=== PATIENT | male | born 1990 | race Caucasian/White ===

== ENCOUNTER 2020-03-13 08:44 | Emergency (ER) | payer SELFPAY ==
[2020-03-13 09:03] VITALS: BP 117/81; PULSE 67; RESP 16; TEMP 36.4; O2SAT 98; BMI 25.1
[2020-03-13 09:12] VITALS: RESP 12
--- NOTE | 2020-03-13 09:35 | W.ED.SKABFB ---
HPI - Skin/Abscess/Foreign Bdy General: Chief complaint: Skin/Abscess/Foreign Body Stated complaint: rash Time Seen by Provider: 03/13/20 08:46 History of Present Illness: HPI narrative: Patient has a rash on the buttocks been there approximately a month and has been putting triple antibiotic and triple H cream on there has not improved. Patient does have a history of psoriasis and eczema. Patient said this rash is been on his butt before. Complains about itching denies any fever chills are any contact with anything that possibly could have caused this MD complaint: rash Onset (ago): week(s) Tetanus up to date: unsure Location: buttocks Severity: mild Quality: pruritic Associated symptoms: Reports itching; Deny chills, fever(s), nausea or vomiting Treatments prior to arrival: OTC topical medication Review of Systems Const: Denies: fever(s), chills or body aches Eyes: Denies: change in vision or blurry vision ENMT: Denies: throat pain or nasal congestion Card: Denies: chest pain or dyspnea on exertion Resp: Denies: dyspnea, productive cough or non-productive cough GI: Denies: abdominal pain, nausea or vomiting : Denies: difficulty urinating Musc: Denies: extremity pain Skin/Breast: Reports: rash (On the buttocks) and pruritus Neuro: Denies: headache(s) Psych: Denies: anxiety or depression Gui/Lymph: Denies: easy bruising PFSH ED PFSH: Social History Smoking and tobacco status: current every day smoker Physical Exam Const: COMMON NORMALS: no acute distress, average body habitus and patient oriented x3 HENMT: COMMON NORMALS: normocephalic HEAD & SCALP: normal to inspection and normocephalic FACE & SINUS: normal facial exam Eye: COMMON NORMALS: conjunctivae normal GENERAL EYE: appearance normal, both eyes and all related structures CONJUNCTIVA: Yes conjunctivae normal Neck/C-Spine: COMMON NORMALS: no JVD Chest: COMMONS NORMALS: normal inspection of the chest Resp: COMMON NORMALS: normal respiratory effort and clear to auscultation bilaterally AUSCULTATION: clear to auscultation bilaterally Cardio: COMMON NORMALS: no JVD, regular rate and regular rhythm RATE: regular rate RHYTHM: regular rhythm GI: COMMON NORMALS: Normal to inspection, nondistended, normoactive bowel sounds present Extremity: COMMON NORMALS: normal to inspection and full ROM Neuro: COMMON NORMALS: patient oriented x3 Skin: OTHER: Maculopapular rash right and left buttocks up to the beach other worse on the right than the left though approximately 3 to 4 inches in length inch in breath maculopapular Course Vital Signs: Vital signs: Vital Signs Temperature 97.5 F L 03/13/20 09:03 Pulse Rate 67 03/13/20 09:03 Respiratory Rate 12 03/13/20 09:12 Blood Pressure 117/81 03/13/20 09:03 Pulse Oximetry 98 03/13/20 09:03 Coding Level of Care Code ED Auto Damage Trainee for Janice Maravilla
== END 2020-03-13 09:48 | disposition home or self-care (01) ==
PROVIDERS: Emergency Provider Nurse Practitioner Family; Family Provider Nurse Practitioner Family; PCP Nurse Practitioner Family
DX: R21 Rash and other nonspecific skin eruption (principal); F17.210 Nicotine dependence, cigarettes, uncomplicated
CPT/HCPCS: 12345; 99281; 99282

== ENCOUNTER 2020-04-18 16:46 | Emergency (ER) | payer SELFPAY ==
[2020-04-18 17:07] VITALS: BP 123/75; PULSE 90; RESP 18; TEMP 36.5; O2SAT 95; BMI 29.5
--- NOTE | 2020-04-18 17:57 | ED_ITS ---
HPI - Skin/Abscess/Foreign Bdy General: Chief complaint: Skin/Abscess/Foreign Body Stated complaint: rash Time Seen by Provider: 04/18/20 17:55 Source: patient Mode of arrival: ambulatory Limitations: no limitations History of Present Illness: HPI narrative: Patient is a 30-year-old male who presents to ED today with complaints of a rash. Patient tells me over the past few days he has noticed very small papules pop up on his hands. He states he will pick at the lesions and eventually they will dry/crust up. He has noticed lesions to his bilateral forearms as well. He is now noticing lesions to the left side of his neck. He describes the rash is extremely pruritic worse at night and worse with hot showers. He has not had any known chemical, household exposures. He does report sitting in a hotel room a few weeks ago. Patient was seen here at our facility recently for a rash to his buttocks. He was diagnosed with eczema. Patient has no systemic complaints. MD complaint: rash Onset (ago): day(s) Tetanus up to date: yes Location: generalized Quality: pruritic Relieving factors: none Exacerbating factors: other (worse at night, worse with warm showers) Context: none Associated symptoms: Reports no associated symptoms; Deny chills, fever(s), nausea or vomiting Treatments prior to arrival: none Review of Systems Const: Denies: fever(s), chills or body aches Eyes: Denies: change in vision ENMT: Denies: throat pain or odynophagia Card: Denies: chest pain Resp: Denies: dyspnea GI: Denies: abdominal pain, nausea or vomiting Musc: Denies: neck pain, back pain, extremity pain or joint pain Skin/Breast: Reports: rash Neuro: Denies: headache(s), numbness in extremities, weakness in extremities or sensory changes PFSH ED PFSH: Social History Smoking and tobacco status: current every day smoker Physical Exam Const: COMMON NORMALS: no acute distress, average body habitus, patient oriented x3, no limitations, healthy appearing, alert and well nourished Lymph: LYMPHATIC: no lymphadenopathy noted Resp: COMMON NORMALS: normal respiratory effort Extremity: GENERAL: Yes normal exam except as noted Neuro: COMMON NORMALS: patient oriented x3 SENSORIUM/ORIENTATION: Yes alert Skin: OTHER: Patient has excoriated papules to bilateral dorsal forearms. He has several folliculitis lesions throughout chest/back that he states are normal. He has a trailing area of erythematous bite like lesions to L side of his neck; he has a plaque like lesion to gluteal cleft (states this is the rash he was seen for last visit) Course Vital Signs: Vital signs: Vital Signs Temperature 98.3 F 04/18/20 18:16 Pulse Rate 88 04/18/20 18:16 Respiratory Rate 20 H 04/18/20 18:16 Blood Pressure 138/66 04/18/20 18:16 Pulse Oximetry 95 04/18/20 17:07 MDM - Skin/Abscess/Foreign Bdy MDM Narrative: Medical decision making narrative: Patient's history is extremely suspicious for scabies. Rash/lesions are excoriated and picked at so hard to fully evaluate. He does complain of papules to his hands and fingers although I did not visualize any interdigital lesions today. Rash does not follow classic scabies distribution however based on history we will go ahead and try treatment with permethrin. Recommend he follow-up with PCP in 2 weeks if rash persists. Discharge Plan Discharge Patient Disposition: Home, Self-Care Clinical Impression: Scabies Condition: Stable Prescriptions: New permethrin 5 % cream 1 applic TOPICAL Q14D Qty: 60 RF: 0 No Action triamcinolone acetonide 0.1 % ointment 1 applic TOPICAL BID PRN (Reason: rash) Qty: 80 RF: 0 Discharge Orders: Discharge Order (Routine); Ordered 04/18/20 Ordered By: Anna Marie Perez Referrals: Ana Luisa Ngo FNP-C [Primary Care Provider] - Patient Instructions: Scabies (ED), Scabies - Adult Activity Restrictions/Additional Instructions: Please follow up with primary care in 2 weeks if rash persists. Discharge Date/Time: 04/18/20 18:32 Coding Level of Care Code ED Roll Over Loader for Janice Fwd Exam Expanded Problem Focused
[2020-04-18 18:16] VITALS: BP 138/66; PULSE 88; RESP 20; TEMP 36.8
== END 2020-04-18 18:32 | disposition home or self-care (01) ==
PROVIDERS: Emergency Provider Physician Assistant; PCP Nurse Practitioner Family
DX: B86 Scabies (principal); F17.210 Nicotine dependence, cigarettes, uncomplicated
CPT/HCPCS: 12345; 99281; 99282

== ENCOUNTER 2020-05-12 08:50 | Emergency (ER) | payer SELFPAY ==
[2020-05-12 09:02] VITALS: BP 139/80; PULSE 87; RESP 16; TEMP 36.8; O2SAT 98; BMI 28.7
[2020-05-12 09:08] VITALS: BP 139/80; PULSE 72; RESP 18; TEMP 36.8; O2SAT 98
--- NOTE | 2020-05-12 09:19 | W.ED.EXTPRO ---
HPI - Extremity Problem General: Chief complaint: Extremity Injury, Upper Stated complaint: R ELBOW INJURY Time Seen by Provider: 05/12/20 09:19 History of Present Illness: HPI Narrative: 30-year-old male presents to the emergency department with right elbow injury. He reports fell out of a window approximately 2 days ago, reports was Sunday, May 10, 2020. States he tripped over something causing him to fall out of the window, poor historian with detailed history. He denies neck pain, denies further injuries with exception of right elbow. Reports did not lose consciousness or hit his head. Reports taking Tylenol, [id number] for pain. Increased swelling and pain this AM. Denies previous right upper extremity trauma or injuries. MD Complaint: joint pain Onset (ago): day(s) (2) Pain Consistency: constant Location: right and elbow Severity scale (1-10): 5 Quality: aching Relieving factors: medication Associated symptoms: Reports no associated symptoms; Deny chest pain, fever(s) or rash Review of Systems General: Reports: 10 or more systems reviewed and unremarkable except in HPI and below Const: Denies: fever(s), chills or diaphoresis Eyes: Reports: blurry vision and eye redness ENMT: Denies: throat pain, dental pain or disequilibrium Card: Denies: chest pain, palpitations or irregular heart rhythm Resp: Denies: dyspnea, productive cough, non-productive cough or wheezing GI: Denies: abdominal pain, nausea or vomiting : Denies: dysuria Musc: Reports: joint pain (Right elbow, localized to the elbow.) and joint redness; Denies: neck pain or back pain Skin/Breast: Denies: rash or pruritus Neuro: Denies: headache(s), weakness in extremities or behavioral changes Gui/Lymph: Denies: easy bruising PFSH ED PFSH: Social History Smoking and tobacco status: current every day smoker Physical Exam Const: COMMON NORMALS: no acute distress, patient oriented x3, healthy appearing and alert GENERAL APPEARANCE: cooperative, comfortable and well hydrated Neck/C-Spine: COMMON NORMALS: full ROM and no lymphadenopathy GENERAL: Yes normal visual inspection and Yes trachea midline CERVICAL SPINE: Yes cervical ROM normal Chest: COMMONS NORMALS: normal inspection of the chest Resp: COMMON NORMALS: normal respiratory effort Cardio: COMMON NORMALS: regular rate, regular rhythm, S1 normal heart sound present, S2 normal heart sound present and Peripheral pulses 2+ throughout RATE: regular rate RHYTHM: regular rhythm HEART SOUNDS: S1 normal heart sound present and S2 normal heart sound present PERIPHERAL PULSES: Peripheral pulses 2+ throughout GI: COMMON NORMALS: non-tender INSPECTION: Yes normal to inspection Back/Pelvis: COMMON NORMALS: thoracic and lumbar spine normal to inspection Extremity: COMMON NORMALS: normal to inspection and capillary refill normal RIGHT UPPER EXTREMITY: Yes elbow joint (Right elbow with edema, slight erythema posterior, no open abrasions or lesions. Able to pronate supinate right upper extremity without radiation of pain to the right elbow, full range of motion to the right wrist right digits x5, right shoulder with full range of motion. Not able to reproduce pain to the right humerus or distal radius/ulna.) Right elbow: Yes neurovascular exam Neuro: COMMON NORMALS: patient oriented x3 and no focal motor deficits SENSORIUM/ORIENTATION: Yes alert Psych: COMMON NORMALS: mental status grossly normal, Normal thought process present and cooperative ACTIVITY/MOTOR BEHAVIOR: Yes appropriate eye contact THOUGHT PROCESS: Normal thought process present Skin: COMMON NORMALS: no rashes or lesions noted and turgor normal GENERAL SKIN EXAM: no rashes or lesions noted and turgor normal Course Vital Signs: Vital signs: Vital Signs Temperature 97.9 F 05/12/20 11:04 Pulse Rate 71 05/12/20 11:04 Respiratory Rate 16 05/12/20 11:04 Blood Pressure 127/73 05/12/20 11:04 Pulse Oximetry 99 05/12/20 11:04 Discharge Plan Discharge Patient Disposition: Home, Self-Care Clinical Impression: Contusion of elbow Qualifiers: Encounter type: initial encounter Laterality: right Qualified Code(s): S50.01XA - Contusion of right elbow, initial encounter Fall as cause of accidental injury at home as place of occurrence Qualifiers: Encounter type: initial encounter Qualified Code(s): W19.XXXA - Unspecified fall, initial encounter Condition: Stable Prescriptions: New ibuprofen 800 mg tablet 800 mg PO TID PRN (Reason: pain) Qty: 20 RF: 0 No Action triamcinolone acetonide 0.1 % ointment 1 applic TOPICAL BID PRN (Reason: rash) Qty: 80 RF: 0 permethrin 5 % cream 1 applic TOPICAL Q14D Qty: 60 RF: 0 Discharge Orders: Discharge Order (Routine); Ordered 05/12/20 Ordered By: Chelsey Hyatt Referrals: Ana Luisa Ngo FNP-C [Primary Care Provider] - Discharge Diet: As Directed Discharge Activity: Resume usual activity Patient Instructions: Contusion in Adults (ED), Fall Prevention (ED) Activity Restrictions/Additional Instructions: Apply cool compresses such as ice several times daily, never apply ice directly to the skin, apply cool compresses for approximately 20 minutes every 2-3 hours as needed for pain. Make sure to eat when taking ibuprofen. Return to the emergency department for worsening pain and swelling, inability to move your arm or if fever or chills developed with increased redness to the elbow. Discharge Date/Time: 05/12/20 11:07 Coding Level of Care Code ED Hand Sole Sewer for Janice Maravilla Exam Comprehensive
--- NOTE | 2020-05-12 09:31 | XR_ITS ---
WS: [id number] Right elbow, 3 views, 05/12/2020 Clinical Data: right elbow pain with swelling w/p fall 2 days ago Comparison: None. Findings: No fractures or dislocations are seen. The radial head is normal. There is soft tissue swelling over the olecranon.. XR/XR elbow RT min 3V* [id number] Impression: Negative right elbow.
[2020-05-12 11:04] VITALS: BP 127/73; PULSE 71; RESP 16; TEMP 36.6; O2SAT 99
== END 2020-05-12 11:07 | disposition home or self-care (01) ==
LOC: ER 10:31
PROVIDERS: Emergency Provider Nurse Practitioner Family; PCP Nurse Practitioner Family
DX: S50.01XA Contusion of right elbow, initial encounter (principal); W13.4XXA Fall from, out of or through window, initial encounter; F17.210 Nicotine dependence, cigarettes, uncomplicated
CPT/HCPCS: 12345; 73080; 99281; 99283

== ENCOUNTER 2020-05-20 22:37 | Emergency (ER) | payer SELFPAY ==
[2020-05-20 22:48] VITALS: BP 121/79; PULSE 80; RESP 18; TEMP 36.7; O2SAT 98; BMI 28.7
--- NOTE | 2020-05-20 22:54 | W.ED.EXTPRO ---
HPI - Extremity Problem General: Chief complaint: Extremity Problem,Nontraumatic Stated complaint: right elbow problems Time Seen by Provider: 05/20/20 22:54 Source: patient Mode of arrival: ambulatory Limitations: no limitations History of Present Illness: HPI Narrative: 30-year-old male comes in today with redness and drainage from his wound that occurred about 1 week ago. Patient had fallen through a window and abraded and contused his elbow. Over the last few days patient's had increasing redness and drainage from open wounds to the elbow. Patient does report picking and put prodding at the wounds. Patient appears well. Patient appears in mild to no pain. Review of Systems General: Reports: 10 or more systems reviewed and unremarkable except in HPI and below Skin/Breast: Reports: skin tenderness PFSH ED PFSH: Social History Smoking and tobacco status: current every day smoker Physical Exam Const: COMMON NORMALS: no acute distress and patient oriented x3 GENERAL APPEARANCE: cooperative HENMT: COMMON NORMALS: normocephalic and Normal external nose present HEAD & SCALP: normal to inspection and normocephalic NOSE: Normal external nose present Eye: GENERAL EYE: appearance normal, both eyes and all related structures Neck/C-Spine: COMMON NORMALS: full ROM Lymph: LYMPHATIC: no lymphadenopathy noted Chest: COMMONS NORMALS: normal inspection of the chest Resp: COMMON NORMALS: normal respiratory effort EFFORT & INSPECTION: Yes able to speak in complete sentences Cardio: COMMON NORMALS: regular rate and regular rhythm RATE: regular rate RHYTHM: regular rhythm GI: COMMON NORMALS: non-tender Back/Pelvis: COMMON NORMALS: thoracic and lumbar spine normal to inspection Extremity: COMMON NORMALS: normal to inspection Neuro: COMMON NORMALS: patient oriented x3 and moves all extremities Psych: COMMON NORMALS: mental status grossly normal and cooperative Skin: NARRATIVE SKIN EXAM: 4 cm area of redness to the right posterior elbow area with 3 open ulcerations draining serosanguineous fluid. Course Vital Signs: Vital signs: Vital Signs Temperature 98.0 F 05/20/20 22:48 Pulse Rate 80 05/20/20 22:48 Respiratory Rate 18 05/20/20 22:48 Blood Pressure 121/79 05/20/20 22:48 Pulse Oximetry 98 05/20/20 22:48 MDM - Extremity (Nontraumatic) MDM Narrative: Medical decision making narrative: Patient comes in today with complaints of redness and drainage from wounds to the right elbow. Exam notes some area of redness with some small draining lesions. Patient has normal range of motion of the elbow. No fevers noted. Differential diagnosis includes cellulitis, foreign body, abscess, bursitis. Note cellulitis to the elbow with wounds draining serous fluid. Suspect patient probably has a mild cellulitis, possible small foreign bodies are causing a foreign body effect. Recommend patient take Bactrim to cover for MRSA and some mupirocin ointment. Recommended patient avoid using neomycin and hydrogen peroxide to the area as it may be irritating the skin. Patient reports understanding of care plan and need for follow-up for worsening symptoms or new concerns. Discharge Plan Discharge Patient Disposition: Home Clinical Impression: Cellulitis Qualifiers: Site of cellulitis: extremity Site of cellulitis of extremity: upper extremity Laterality: right Qualified Code(s): L03.113 - Cellulitis of right upper limb Condition: Stable Prescriptions: New Bactrim DS 800-160 mg tablet 1 tab PO DAILY 10 Days Qty: 20 RF: 0 mupirocin 2 % ointment 1 applic TOPICAL BID Qty: 22 RF: 0 No Action triamcinolone acetonide 0.1 % ointment 1 applic TOPICAL BID PRN (Reason: rash) Qty: 80 RF: 0 ibuprofen 800 mg tablet 800 mg PO TID PRN (Reason: pain) Qty: 20 RF: 0 permethrin 5 % cream 1 applic TOPICAL Q14D Qty: 60 RF: 0 Discharge Orders: Discharge Order (Routine); Ordered 05/20/20 Ordered By: Venkatesh Wagner Discharge Diet: Usual diet Discharge Activity: Increase activity as tolerated Patient Instructions: Cellulitis (ED) Activity Restrictions/Additional Instructions: Home and rest. Clean wound twice daily with mild soap and water. Apply antibiotic ointment. Do not poke or squeeze at wound. Take antibiotics by mouth. Use acetaminophen and ibuprofen for pain. Cover wound to keep it clean and dry. Follow-up with primary care in 1 week for recheck. Return to the ER for high fever or worsening symptoms. Coding Level of Care Code ED Parking Meter Collector for Janice Fwgauri Exam Comprehensive
[2020-05-20] MEDS: sulfamethoxazole-trimeth DS 160-800 mg Tablet 1 TAB PO (23:22)
[2020-05-20] MEDS: mupirocin oint 22 gm 1 APPLIC TOPICAL (23:23)
== END 2020-05-20 23:32 | disposition home or self-care (01) ==
PROVIDERS: Emergency Provider Nurse Practitioner Family
DX: L03.113 Cellulitis of right upper limb (principal); F17.210 Nicotine dependence, cigarettes, uncomplicated
CPT/HCPCS: 12345; 99281; 99283